=== PATIENT | male | born 1980 | race Caucasian/White ===

== ENCOUNTER 2018-09-29 07:23 | Emergency (ER) | payer SELFPAY ==
[~2018-09-29] VITALS: Ht 175.3 cm; Wt 81.8 kg
[2018-09-29] MEDS ORDERED: IBUP200C5 PO (07:29)
[2018-09-29] MEDS ORDERED: KETOROLAC TROMETHAMINE 30 MG/ML VIAL IM ONE (08:15)
[2018-09-29 08:31] VITALS: BP 108/68
== END 2018-09-29 08:37 | disposition home or self-care (01) ==
LOC: EMS 07:25
DX: M54.2 Cervicalgia (principal); M54.42 Lumbago with sciatica, left side; Z79.899 Other long term (current) drug therapy
CPT/HCPCS: 96372; 99283; J1885